=== PATIENT | female | born 1955 | race African-American/Black ===

== ENCOUNTER 2019-03-17 14:34 | Emergency (ER) | payer BC ==
[~2019-03-17 14:34] MED LIST: Iopamidol-370 76% 500 ML 1 ML ONE
[2019-03-17] MEDS ORDERED: Ondansetron PF 4 MG/2 ML Vial ONE (16:17)
[2019-03-17] MEDS ORDERED: Morphine 4 MG/ML VIAL ONE (16:17)
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
[2019-03-17 16:48] LABS: Hemoglobin 13.7 g/dL (12.0-16.0); Mean Corpuscular HGB CONC 33.5 g/dL (32.0-36.0); Mean Corpuscular Hemoglobin 31.2 pg (27.0-31.0); Mean Corpuscular Volume 93.1 fL (78.0-98.0); Red Blood Cell (RBC) Count 4.39 mill/uL (4.20-5.40); White Blood Cell (WBC) Count 8.9 thou/uL (4.8-10.8)
[2019-03-17 17:09] LABS: ALT (SGPT) 10 U/L (8-55); AST (SGOT) 37 U/L (5-34); Albumin 4.3 g/dL (3.4-4.8); Alkaline Phosphatase 69 U/L (40-110); Anion Gap 15 mmol/L (10-20); BUN (Urea Nitrogen) 11 mg/dL (9.8-20.1); Bilirubin, Total 1.1 mg/dL (0.2-1.2); Calc. Creatinine Clearance 0 mL/min (70-130); Calcium 9.5 mg/dL (7.8-10.44); Carbon Dioxide 23 mmol/L (23-31); Chloride 109 mmol/L (98-107); Estimated GFR-MDRD 67; Globulin 3.5 g/dL (2.4-3.5); Glucose 84 mg/dL (80-115); Potassium 4.4 mmol/L (3.5-5.1); Protein, Total 7.8 g/dL (6.0-8.3); Sodium 143 mmol/L (136-145)
[2019-03-17 17:10] LABS: Band 2 % (5-11); Lymphocytes 13 % (21-51); MDiff Complete? YES; Mean Platelet Volume 8.7 fL (7.4-10.4); Monocytes 7 % (0-10); Neutrophil 77 % (42-75); Platelet Clumps SLIGHT; Platelet Count 155 thou/uL (130-400); Platelet Morphology Comment Appears Adequate; RBC Morphology Normal; Reactive Lymphocytes 1 % (0-10)
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
[2019-03-17 18:38] LABS: Bilirubin Negative (Negative); Blood, Urine Negative (Negative); Clarity Clear (Clear); Glucose, Urine (Dipstick) Normal (Negative); Leukocyte Negative Leu/uL (Negative); Nitrite Negative (Negative); Protein, Urine (Dipstick) Negative (Neg-Trace); Urobilinogen Normal mg/dL (Less than 2)
[2019-03-17] MEDS ORDERED: Ketorolac Tromethamine 30 MG/ML VIAL ONE (18:47)
== END 2019-03-17 18:58 | disposition home or self-care (01) ==
LOC: ERS 14:34
DX: S30.1XXA Contusion of abdominal wall, initial encounter (principal); S00.93XA Contusion of unspecified part of head, initial encounter; S20.219A Contusion of unspecified front wall of thorax, initial encounter; Y04.0XXA Assault by unarmed brawl or fight, initial encounter
CPT/HCPCS: 70450; 71045; 71260; 72125; 74177; 80053; 81003; 85025; 96361; 96374; 96375; J1885; J2270; J2405; Q9967